=== PATIENT | female | born 1990 ===

== ENCOUNTER 2017-05-16 19:43 | Emergency (ER) | payer MEDICAID ==
[2017-05-16 19:50] VITALS: BP 138/90; PULSE 110; RESP 20; TEMP 98.9; O2SAT 100
--- NOTE | 2017-05-16 19:53 | C.PDOC ---
History Of Present Illness 27 yr old female presents to the ER for evaluation of left ankle pain, swelling and bruising since yesterday after sustaining a twisting injury. Patient states he was unable to bear weight on the foot due to pain. Denies head injury, deformity, weakness, sensory or vascular deficits to injured foot. Time Seen by Provider: 05/16/17 19:52 Chief Complaint (Nursing): Lower Extremity Problem/Injury History Per: Patient History/Exam Limitations: no limitations Onset/Duration Of Symptoms: Days (1) Current Symptoms Are (Timing): Still Present - Knee Currently Unable To: Bear Weight - Ankle/Foot Description Of Injury: Twisted Past Medical History Reviewed: Historical Data, Nursing Documentation, Vital Signs Vital Signs: Last Vital Signs Temp 98.9 F 05/16/17 19:44 Pulse 110 H 05/16/17 19:44 Resp 20 05/16/17 19:44 BP 138/90 05/16/17 19:44 Pulse Ox 100 05/16/17 22:04 Surgical History: Tonsillectomy Family History: States: No Known Family Hx - Social History Hx Alcohol Use: No Hx Substance Use: No Review Of Systems Except As Marked, All Systems Reviewed And Found Negative. Musculoskeletal: Positive for: Other ((+) Left ankle pain, swelling and bruising ). Negative for: Back Pain, Leg Pain Neurological: Negative for: Weakness, Numbness Physical Exam - Physical Exam Appears: Non-toxic, No Acute Distress Skin: Warm, Dry, No Rash Head: Atraumatic, Normacephalic Chest: Symmetrical Extremity: No Normal ROM (decrease AROM over Left ankle due to pain), Tenderness (Left ankle, lateral malleolus), No Calf Tenderness, Capillary Refill (<2), Other (Left Ankle - Moderate edema, ecchymosis , no palpable deformity, no neurovascular deficits distally to injury.) Neurological/Psych: Oriented x3, Normal Speech, Normal Motor, Normal Sensation, Normal Reflexes ED Course And Treatment O2 Sat by Pulse Oximetry: 100 Pulse Ox Interpretation: Normal - Other Rad X-Ray - Left Tibia Fibula X-Ray: Interpreted by Me, Viewed By Me Interpretation: Negative for fractures. X-Ray - Left Ankle & Left Foot X-Ray: Interpreted by Me, Viewed By Me Interpretation: Negative for fractures. - CT Scan/US CT - Left Lower Extremity Other Rad Studies (CT/US): Read By Radiologist, Radiology Report Reviewed CT/US Interpretation: EXAM: CT Left Lower Extremity Without Intravenous Contrast, Ankle. CLINICAL HISTORY: 27 years old, female; Injury or trauma; Fall; Initial encounter; Sprain or strain; Ankle; Left; Additional. info: Ankle injury. TECHNIQUE: Axial computed tomography images of the left ankle without intravenous contrast. This CT exam. was performed using one or more of the following dose reduction techniques: automated exposure. control, adjustment of the mA and/or kV according to patient size, and/or use of iterative. reconstruction technique. Coronal and sagittal reformatted images were created and reviewed. COMPARISON: No relevant prior studies available. FINDINGS: Bones/joints: No acute fracture. Multipartite os peroneum. No dislocation. Small joint effusion. Soft tissues: Soft tissue swelling/ stranding about ankle. IMPRESSION: 1. No fracture. 2. Incidental/non-acute findings are described above. Progress Note: On re-eval, pt is afebrile, hemodynamicaly stable. NOn-toxic. RLE: exam c/w ankle injury with mod edema over lateral malleolus. NO neurovascular deficits, no deformity. Imaging review and appears normal. Phu wrap and air cast applied to Left ankle. Pt advised and ref. to F/u wit Ortho in 2-3 days for re-eavl. return if any new changes. Medical Decision Making Medical Decision Making: PLAN: * CT - Left Lower Extremity * X-Ray - Left Tibia Fibula, Left Ankle, Left Foot * Tramado PO Disposition Counseled Patient/Family Regarding: Studies Performed, Diagnosis, Need For Followup, Rx Given - Disposition Referrals: Graham Monte MD [Staff Provider] - [facility] [Outside] [facility] [Outside] Disposition: HOME/ ROUTINE Disposition Time: 22:08 Condition: STABLE Additional Instructions: RICE-rest, ice, compression, elevation Take pain medication as need Avoid prolong walking for 1 week Follow up with Orthopedist in 2-3 days for re-evaluation. Return to ED if any worsening or new changes. 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 - Scribe Statement The provider has reviewed the documentation as recorded by the Scribe Sarah See All medical record entries made by the Scribe were at my direction and personally dictated by me. I have reviewed the chart and agree that the record accurately reflects my personal performance of the history, physical exam, medical decision making, and the department course for this patient. I have also personally directed, reviewed, and agree with the discharge instructions and disposition.
--- NOTE | 2017-05-16 21:59 | CT ---
EXAM: CT Left Lower Extremity Without Intravenous Contrast, Ankle CLINICAL HISTORY: 27 years old, female; Injury or trauma; Fall; Initial encounter; Sprain or strain; Ankle; Left; Additional info: Ankle injury TECHNIQUE: Axial computed tomography images of the left ankle without intravenous contrast. This CT exam was performed using one or more of the following dose reduction techniques: automated exposure control, adjustment of the mA and/or kV according to patient size, and/or use of iterative reconstruction technique. Coronal and sagittal reformatted images were created and reviewed. COMPARISON: No relevant prior studies available. FINDINGS: Bones/joints: No acute fracture. Multipartite os peroneum. No dislocation. Small joint effusion. Soft tissues: Soft tissue swelling/stranding about ankle. IMPRESSION: 1. No fracture. 2. Incidental/non-acute findings are described above.
--- NOTE | 2017-05-17 07:28 | RAD ---
Left tibia and fibula three views History: Injury. Comparison: None available. Findings: No evidence of acute displaced fracture or dislocation. Probable external rounded radiopaque densities project in the lateral soft tissues at the mid calf. Lateral malleolar soft tissue swelling at the level of the ankle joint. Impression: Lateral malleolar soft tissue swelling at the level of the ankle joint. If pain persists, consider MRI.
--- NOTE | 2017-05-17 07:30 | RAD ---
Left foot three views History: Injury. Comparison: None available. Findings: Plantar calcaneal spurring. Small accessory ossicle adjacent to the cuboid bone. Lateral malleolar soft tissue swelling at the level of the ankle joint space. Mild hallux valgus deformity. Impression: Plantar calcaneal spurring. Small accessory ossicle adjacent to the cuboid bone. Lateral malleolar soft tissue swelling at the level of the ankle joint space. Mild hallux valgus deformity. If pain persists, consider MRI.
--- NOTE | 2017-05-17 07:35 | RAD ---
Left ankle three views History: Injury. Comparison: None available. Findings: Prominent lateral malleolar soft tissue swelling. No evidence for acute displaced fracture or dislocation. Ankle mortise maintained. Talar dome intact. Plantar calcaneal spurring. Minimal dorsal calcaneal spurring. Rounded radiopaque densities project over the lateral soft tissues the level of the mid calf, likely external. Impression: Prominent lateral malleolar soft tissue swelling. No evidence for acute displaced fracture or dislocation. Plantar calcaneal spurring. Minimal dorsal calcaneal spurring. Rounded radiopaque densities project over the lateral soft tissues the level of the mid calf, likely external. If pain persists, consider MRI.
== END 2017-05-16 22:30 | disposition home or self-care (01) ==
LOC: C.ER 19:43
DX: S93.402A Sprain of unspecified ligament of left ankle, initial encounter (principal); X50.1XXA Overexertion from prolonged static or awkward postures, initial encounter; Y93.9 Activity, unspecified; Y92.9 Unspecified place or not applicable